=== PATIENT | male | born 1980 | race Hispanic/Latino ===

== ENCOUNTER 2017-08-04 06:31 | Emergency (ER) | payer MEDICAID ==
[2017-08-04 06:31] VITALS: BMI 21.6
[2017-08-04] MEDS ORDERED: Sodium Chloride 0.9% 1,000 ML IV STA (07:16)
[2017-08-04] MEDS ORDERED: Albuterol 0.083% Inhal Sol (2.5 mg/3 mL) UD INH STA (07:17)
--- NOTE | 2017-08-04 07:19 | ED PDOC ---
Arrival/HPI - General Chief Complaint: Cough, Cold, Congestion Time Seen by Provider: 08/04/17 07:07 Historian: Patient - History of Present Illness Narrative History of Present Illness (Text): 08/04/17 07:10 Clyde Francois is a 36 year old male, whose past medical history includes asthma , who presents to the emergency department complaining of persistent coughing for the past two days. Patient reports he also has diaphoresis, chills, and mild chest discomfort due to coughing. Patient denies chest pain, shortness of breath, headache, fever, nausea, vomiting, diarrhea, abdominal pain, dizziness or other complaints. He also notes being a current smoker trying to quit. Time/Duration: < week Symptom Onset: Sudden Symptom Course: Unchanged Past Medical History - Provider Review Nursing Documentation Reviewed: Yes - Infectious Disease Hx of Infectious Diseases: None - Tetanus Immunization Tetanus Immunization: Unknown - Cardiac Hx Cardiac Disorders: No - Pulmonary Hx Respiratory Disorders: Yes Hx Asthma: Yes Hx Bronchitis: Yes - Neurological Hx Neurological Disorder: No - HEENT Hx HEENT Disorder: No - Renal Hx Renal Disorder: No - Endocrine/Metabolic Hx Endocrine Disorders: No - Hematological/Oncological Hx Blood Disorders: No - Integumentary Hx Dermatological Disorder: No - Musculoskeletal/Rheumatological Hx Musculoskeletal Disorders: Yes Hx Degenerative Joint Disease: Yes - Gastrointestinal Hx Gastrointestinal Disorders: No - Genitourinary/Gynecological Hx Genitourinary Disorders: No - Psychiatric Hx Bipolar Disorder: Yes Hx Depression: Yes Hx Substance Use: No - Past Surgical History Past Surgical History: No Previous - Anesthesia Hx Anesthesia: No - Suicidal Assessment Feels Threatened In Home Enviroment: No Family/Social History - Physician Review Nursing Documentation Reviewed: Yes Family/Social History: Unknown Family HX Smoking Status: Heavy Smoker > 10 Cigarettes Daily Hx Alcohol Use: Yes Hx Substance Use: No Allergies/Home Meds Allergies/Adverse Reactions: Allergies bee pollen Allergy (Verified 07/01/16 05:10) ANAPHYLAXIS fexofenadine HCl [From Amanda] Allergy (Verified 07/01/16 05:10) SHORTNESS OF BREATH venom-honey bee [bee venom (honey bee)] Allergy (Verified 07/01/16 05:10) ANAPHYLAXIS Home Medications: Home Meds Medication Instructions Recorded Confirmed Aripiprazole [Abilify] 10 mg PO DAILY 12/17/14 08/04/17 buPROPion [Bupropion HCl] 50 mg PO HS 08/04/17 08/04/17 Review of Systems - Physician Review All systems were reviewed & negative as marked: Yes - Review of Systems Constitutional: absent: Fevers Respiratory: Cough. absent: SOB Cardiovascular: Other (chest discomfort ). absent: Chest Pain Endocrine: Diaphoresis Physical Exam Vital Signs Reviewed: Yes Vital Signs Temp Pulse Resp BP Pulse Ox 08/04/17 06:48 98.7 F 144 H 20 101/73 93 L Temperature: Afebrile Blood Pressure: Normal Pulse: Tachycardic Respiratory Rate: Normal Appearance: Positive for: Well-Appearing, Non-Toxic, Comfortable Pain Distress: None Mental Status: Positive for: Alert and Oriented X 3 - Systems Exam Head: Present: Atraumatic, Normocephalic Pupils: Present: PERRL Extroacular Muscles: Present: EOMI Conjunctiva: Present: Normal Mouth: Present: Moist Mucous Membranes Pharnyx: Present: ERYTHEMA, Other (persistent cough). No: EXUDATE, TONSILS ENLARGED Neck: Present: Normal Range of Motion Respiratory/Chest: Present: Clear to Auscultation, Good Air Exchange. No: Respiratory Distress, Accessory Muscle Use, Wheezes, Rales Cardiovascular: Present: Normal S1, S2, Tachycardic. No: Regular Rate and Rhythm, Murmurs Abdomen: Present: Normal Bowel Sounds. No: Tenderness, Distention, Peritoneal Signs, Rebound, Guarding Upper Extremity: Present: Normal Inspection, Normal ROM, NORMAL PULSES, Neurovascularly Intact, Capillary Refill < 2s. No: Cyanosis, Edema, Tenderness , Swelling, Erythema, Deformity Lower Extremity: Present: Normal Inspection, NORMAL PULSES, Normal ROM, Neurovascularly Intact, Capillary Refill < 2 s. No: Edema, Cyanosis, Tenderness , Swelling, Erythema, Deformity Neurological: Present: GCS=15, CN II-XII Intact, Speech Normal Skin: Present: Warm, Dry, Normal Color. No: Rashes Psychiatric: Present: Alert, Oriented x 3, Normal Insight, Normal Concentration Medical Decision Making ED Course and Treatment: 08/04/17 Impression: 36 year old with tachycardia, injected oral pharnyngeal and persistent cough with no exudate. Plan: -- EKG -- Chest X-ray -- Labs -- Albuterol and Sodium Chloride -- Reassess and disposition Progress Notes: - Lab Interpretations Lab Results: 08/04/17 07:20 08/04/17 07:20 Lab Results 08/04/17 07:20: Sodium 140, Potassium 3.6, Chloride 99, Carbon Dioxide 26, Anion Gap 19, BUN 19, Creatinine 1.1, Est GFR ( Amer) > 60, Est GFR (Non- Af Amer) > 60, Random Glucose 106, Calcium 9.1, Total Bilirubin 1.0, AST 58, ALT 43, Alkaline Phosphatase 43, Total Protein 7.7, Albumin 4.2, Globulin 3.5, Albumin/Globulin Ratio 1.2 08/04/17 07:20: WBC 3.0 L D, RBC 5.10, Hgb 15.8, Hct 44.1, MCV 86.5, MCH 31.0, MCHC 35.8, RDW 11.9, Plt Count 131, MPV 10.2, Gran % 44.8 L, Lymph % (Auto) 34.1 , Sargent % (Auto) 20.5 H, Eos % (Auto) 0.3 L, Baso % (Auto) 0.3, Gran # 1.35 L, Lymph # (Auto) 1.0 L, Sargent # (Auto) 0.6, Eos # (Auto) 0.0, Baso # (Auto) 0.01, Neutrophils % (Manual) Pending, Lymphocytes % (Manual) Pending, Monocytes % ( Manual) Pending I have reviewed the lab results: Yes - RAD Interpretation Radiology Orders: 08/04/17 07:16 CHEST PORTABLE [RAD] [employer]: Radiologist - EKG Interpretation Interpreted by ED Physician: Yes Type: 12 lead EKG - Medication Orders Current Medication Orders: Discontinued Medications Albuterol Sulfate (Albuterol 0.083% Inhal Leonor (2.5 Mg/3 Ml) Ud) 2.5 mg INH STAT STA Stop: 08/04/17 07:18 Last Admin: 08/04/17 07:36 Dose: 2.5 mg Sodium Chloride (Sodium Chloride 0.9%) 1,000 mls @ 999 mls/hr IV .Q1H1M STA Stop: 08/04/17 08:16 Last Admin: 08/04/17 07:35 Dose: 999 mls/hr eMAR Start Stop Document 08/04/17 07:35 ELDON (Rec: 08/04/17 07:36 ELDON [id number] Intravenous Solution Start Date 08/04/17 Start Time 07:30 End Date 08/04/17 End time 08:30 Total Infusion Time 60 - Scribe Statement The provider has reviewed the documentation as recorded by the Aneudy Snow Provider Scribe Attestation: All medical record entries made by the Scribe were at my direction and personally dictated by me. I have reviewed the chart and agree that the record accurately reflects my personal performance of the history, physical exam, medical decision making, and the department course for this patient. I have also personally directed, reviewed, and agree with the discharge instructions and disposition. Disposition/Present on Arrival - Present on Arrival Any Indicators Present on Arrival: No History of DVT/PE: No History of Uncontrolled Diabetes: No Urinary Catheter: No History of Decub. Ulcer: No History Surgical Site Infection Following: None - Disposition Have Diagnosis and Disposition been Completed?: Yes Diagnosis: URI (upper respiratory infection), Bronchitis Disposition: HOME/ ROUTINE Disposition Time: 21:30 Patient Plan: Discharge Condition: STABLE Prescriptions: Albuterol HFA [Ventolin HFA 90 mcg/actuation (8 g)] 2 puff IH [id number] PRN #1 puff PRN Reason: Cough Promethazine DM [Phenergan DM Syrup] 10 ml PO TID PRN #120 ml PRN Reason: Cough Forms: [employer] (Nepali)
[2017-08-04 07:44] LABS: BASO # 0.01 K/mm3 (0.0-2.0); BASO % 0.3 % (0.0-3.0); EOS % 0.3 % (1.5-5.0); GRAN # 1.35 (1.4-6.5); GRAN % 44.8 % (50.0-68.0); HEMOGLOBIN 15.8 g/dL (14.0-18.0); LYMPH % 34.1 % (22.0-35.0); MEAN CELL VOLUME 86.5 fl (80.0-105.0); MEAN CORPUSCULAR HGB CONC 35.8 g/dl (31.0-37.0); MEAN PLATELET VOLUME 10.2 fl (7.0-11.0); MONO # 0.6 (0.1-0.6); MONO % 20.5 % (1.0-6.0); PLATELET COUNT 131 10^3/uL (120.0-450.0); RED CELL DISTRIBUTION WIDTH 11.9 % (11.5-14.5)
[2017-08-04 07:53] LABS: ALB/GLOB RATIO 1.2 (1.1-1.8); ALBUMIN 4.2 g/dL (3.0-4.8); ALT/SGPT 43 U/L (7-56); AST/SGOT 58 U/L (17-59); BLOOD UREA NITROGEN 19 mg/dL (7-21); CALCIUM 9.1 mg/dL (8.4-10.5); GFR AFRICAN-AMERICAN > 60; GFR NON-AFRICAN AMERICAN > 60
[2017-08-04 09:42] LABS: ATYPICAL LYMPHOCYTE 4 % (0.0-0.0); EOSINOPHIL 1 % (0.0-3.0); LYMPHOCYTE 38 % (22.0-35.0); MONOCYTE 7 % (1.0-6.0); NEUTROPHIL 50 % (50.0-70.0)
[2017-08-04 09:43] LABS: PLATELET ESTIMATE NORMAL (NORMAL)
--- NOTE | 2017-08-04 10:27 | RAD ---
HISTORY: cough COMPARISON: No prior. FINDINGS: LUNGS: No active pulmonary disease. PLEURA: No significant pleural effusion identified, no pneumothorax apparent. CARDIOVASCULAR: Normal. OSSEOUS STRUCTURES: No significant abnormalities. VISUALIZED UPPER ABDOMEN: Normal. OTHER FINDINGS: None. IMPRESSION: No active disease.
[2017-08-04 10:43] VITALS: BP 118/77; PULSE 90; RESP 18; TEMP 98.8; O2SAT 99
--- NOTE | 2017-08-04 18:00 | CARD ---
APPROVED REPORT EKG Measurement Heart [id number] <Conclusion> Sinus tachycardia Possible Left atrial enlargement RSR' or QR pattern in V1 suggests right ventricular conduction delay Borderline ECG
== END 2017-08-04 10:44 | disposition home or self-care (01) ==
LOC: ED 06:31
DX: J06.9 Acute upper respiratory infection, unspecified (principal); J40 Bronchitis, not specified as acute or chronic; F17.210 Nicotine dependence, cigarettes, uncomplicated
CPT/HCPCS: 71045; 80053; 85025; 93005; 96360; 99284; J7040